=== PATIENT | male | born 1980 | race Caucasian/White ===

== ENCOUNTER 2019-03-16 09:30 | Emergency (ER) | payer OTHER, BC, SELFPAY ==
[2019-03-16 09:32] VITALS: BP 170/106; PULSE 110; RESP 16; TEMP 36.9; O2SAT 98; BMI 29.7
--- NOTE | 2019-03-16 09:37 | ED.RN ---
SPOKE WITH DICK MCNAMARA [employer] CONTR[employer] SPECIALIST FOR [facility]. STATES DRUG SCREEN IS REQUIRED. TO BE DONE THROUGH [facility].
--- NOTE | 2019-03-16 09:44 | CT_ITS ---
STUDY: CT BRAIN WITHOUT CONTRAST REASON FOR EXAM: Male, 38 years old. Right sided eye injury after recent blunt trauma. RADIATION DOSAGE (If Supplied By Facility): CTDIvol = ( 44.99 ) mGy, DLP = ( 846.73 ) mGycm TECHNIQUE: Transaxial CT imaging of the brain was performed without administration of intravenous contrast material. Multiplanar reformations are submitted for interpretation. Individualized dose optimization techniques were used for this CT. COMPARISON: No relevant priors. FINDINGS: Normal soft tissue structures. Normal calvarium. There is asymmetry of the ventricles consistent with an anatomic variant. Normal white matter tracts of the cerebral hemispheres. Normal basal ganglia and thalami. Normal brainstem. Normal cerebellum. There appears to be a justin cisterna magna. There is no intracranial hemorrhage. There are no findings of an acute ischemic infarction. There are multiple left-sided maxillary mucous retention cysts. CT/Brain/Head without Contrast IMPRESSION: No CT evidence of acute intracranial hemorrhage. Electronically Signed: Verena Villa MD at 10:15 EDT , Service support ,
[2019-03-16 09:51] VITALS: BP 162/107; PULSE 96; O2SAT 98
[2019-03-16 10:04] VITALS: BP 170/106; PULSE 110
--- NOTE | 2019-03-16 10:40 | ED.VISSUMM ---
- ER Visit Summary Date of Service: 03/16/19 Chief Complaint: [Injury to right orbit presents to the emergency department with complaint of an injury to his right eye and orbit that occurred around 9:10 AM. Patient states that] History of Present Illness: The patient is a 38 M [he was looking around the [place] the handle of the shovel struck him in the right orbit causing a laceration. Patient also complains of some mild discomfort over his right jaw. No loss of consciousness. Patient is up-to-date on tetanus. He denies any vision changes although he states that he immediately put a towel of his face because there was a lot of blood and is been holding pressure since.] Physical Examination: [HEENT-PERRLA, EOMI. Cranial nerves II through XII grossly intact. TMs clear. Mucous membranes moist. No adenopathy. Right orbit-patient has a 4 cm laceration that is somewhat V-shaped over the area of the medial eyebrow onto the bridge of the nose. Patient has some mild tenderness over the superior portion of the orbit. No obvious bony depressions noted. Extraocular muscle movement is normal. No hyphema noted. No tenderness over the globe. No obvious abrasions. Patient has minimal discomfort over the right mandible without evidence of soft tissue swelling. Patient has no malocclusion. Cardiovascular-regular rate and rhythm without murmur or ectopy Lungs-clear to auscultation, chest wall stable without crepitus or subcu emphysema Abdomen-normoactive bowel sounds, soft, nontender, no rebound or rigidity, no peritoneal signs. Extremities-intact ?4, normal range of motion, normal pulses, atraumatic] Test Results: [CT brain and orbits showed nothing acute.] Emergency Department Course and Treatment: [. ] Laceration repair-wound sterilely draped and prepped. Wound cleansed with Shur-Clens and irrigated with copious saline. Using 6-0 nylon a total of 5 single interrupted sutures placed with good wound edge approximation. Patient tired procedure well. Treatment Plan: [Patient have sutures removed in 5 to 7 days. Discharged home stable condition] Disposition: [Discharged home stable condition] Impression: [Contusion right orbit/face Laceration right eyebrow 4 cm-simple repair] This note was generated with [employer] software. It may contain incorrect words, spelling, and punctuation that were not noted in review of the chart prior to signing ED Disposition - Plan for ED Patient: Referrals: Care Physician,No Primary [Primary Care Provider] -
--- NOTE | 2019-03-16 10:43 | ED.DCSUM_ITS ---
- ER Visit Summary Date of Service: 03/16/19 Chief Complaint: [Injury to right orbit presents to the emergency department with complaint of an injury to his right eye and orbit that occurred around 9:10 AM. Patient states that] History of Present Illness: The patient is a 38 M [he was looking around the [place] the handle of the shovel struck him in the right orbit causing a laceration. Patient also complains of some mild discomfort over his right jaw. No loss of consciousness. Patient is up-to-date on tetanus. He denies any vision changes although he states that he immediately put a towel of his face because there was a lot of blood and is been holding pressure since.] Physical Examination: [HEENT-PERRLA, EOMI. Cranial nerves II through XII grossly intact. TMs clear. Mucous membranes moist. No adenopathy. Right orbit-patient has a 4 cm laceration that is somewhat V-shaped over the area of the medial eyebrow onto the bridge of the nose. Patient has some mild tenderness over the superior portion of the orbit. No obvious bony depressions noted. Extraocular muscle movement is normal. No hyphema noted. No tenderness over the globe. No obvious abrasions. Patient has minimal discomfort over the right mandible without evidence of soft tissue swelling. Patient has no malocclusion. Cardiovascular-regular rate and rhythm without murmur or ectopy Lungs-clear to auscultation, chest wall stable without crepitus or subcu emphysema Abdomen-normoactive bowel sounds, soft, nontender, no rebound or rigidity, no peritoneal signs. Extremities-intact ?4, normal range of motion, normal pulses, atraumatic] Test Results: [CT brain and orbits showed nothing acute.] Emergency Department Course and Treatment: [. ] Laceration repair-wound sterilely draped and prepped. Wound cleansed with Shur-Clens and irrigated with copious saline. Using 6-0 nylon a total of 5 single interrupted sutures placed with good wound edge approximation. Patient tired procedure well. Treatment Plan: [Patient have sutures removed in 5 to 7 days. Discharged home stable condition] Disposition: [Discharged home stable condition] Impression: [Contusion right orbit/face Laceration right eyebrow 4 cm-simple repair] This note was generated with [employer] software. It may contain incorrect words, spelling, and punctuation that were not noted in review of the chart prior to signing ED Disposition - Plan for ED Patient: Referrals: Care Physician,No Primary [Primary Care Provider] -
--- NOTE | 2019-03-16 10:43 | ED.DEP ---
ED Disposition - Plan for ED Patient: Instructions: ED Contusion Face, ED Laceration Facial Sutr Tape Referrals: Care Physician,No Primary [Primary Care Provider] - [facility] [GROUP OF PHYSICIANS] - 7 Days for suture removal
[2019-03-16 10:49] VITALS: BP 138/69; PULSE 81; RESP 16; O2SAT 99
== END 2019-03-16 10:50 | disposition home or self-care (01) ==
LOC: ED 10:04
PROVIDERS: Emergency Provider Emergency Medicine
DX: S01.111A Laceration without foreign body of right eyelid and periocular area, initial encounter (principal); S05.11XA Contusion of eyeball and orbital tissues, right eye, initial encounter; W22.8XXA Striking against or struck by other objects, initial encounter; Y93.9 Activity, unspecified; Y92.9 Unspecified place or not applicable
CPT/HCPCS: 12013; 70450; 99282